=== PATIENT | male | born 1995 | race Caucasian/White ===

== ENCOUNTER 2017-02-18 23:45 | Inpatient (IN) | payer OTHER ==
[~2017-02-18] VITALS: Ht 177.8 cm; Wt 79.1 kg
[2017-02-19 00:35] LABS: MEAN CORPUSCULAR HEMOGLOBIN 32.9 pg (27.0-33.0); MEAN CORPUSCULAR HGB CONC 33.9 g/dl (32.0-36.5); MEAN CORPUSCULAR VOLUME 97.2 fl (80.0-96.0); RED CELL DISTRIBUTION WIDTH 12.2 % (11.5-14.5); WHITE BLOOD COUNT 9.2 K/mm3 (4.0-10.0)
[2017-02-19 01:09] LABS: ALBUMIN/GLOBULIN RATIO 1.18 (1.00-1.93); ALKALINE PHOSPHATASE 94 U/L (45-117); ALT/SGPT 22 U/L (12-78); ANION GAP 6 MEQ/L (8-16); AST/SGOT 13 U/L (15-37); BILIRUBIN,DIRECT 0.1 MG/DL (0.0-0.2); BILIRUBIN,TOTAL 0.5 MG/DL (0.2-1.0); BLOOD UREA NITROGEN 14 MG/DL (7-18); CALCIUM LEVEL 9.2 MG/DL (8.5-10.1); CARBON DIOXIDE LEVEL 29 MEQ/L (21-32); CHLORIDE LEVEL 107 MEQ/L (98-107); CREATININE FOR GFR 1.07 MG/DL (0.70-1.30); GLUCOSE, FASTING 93 MG/DL (70-105); METHADONE URINE NEGATIVE (NEGATIVE); POTASSIUM SERUM 3.9 MEQ/L (3.5-5.1); SODIUM LEVEL 142 MEQ/L (136-145); TOTAL PROTEIN 7.4 GM/DL (6.4-8.2)
[2017-02-19] MEDS ORDERED: MAALOX 30 ML SUSP *UDC PO PRN (02:15)
[2017-02-19] MEDS ORDERED: MOM 30ML SUSPENSION UDC PO PRN (02:15)
[2017-02-19] MEDS ORDERED: ACETAMINOPHEN TAB 650MG DOSE (2X325MG) PO PRN (02:15)
[2017-02-19 02:35] VITALS: BP 118/73
[2017-02-19] MEDS: NICOTINE 21MG/24HR 1 EA TRANSDERMAL TD SCH (09:00)
--- NOTE | 2017-02-19 10:56 | HPEPDOC ---
Medical History and Physical Date of Admission Feb 19, 2017 at 02:09 History and Physical PCP: [facility] ATTENDING: Dr. Alejandro Nieto HPI: 21yoM admitted to [facility] for unspecified depressive disorder, being medically examined today. No acute medical complaints today. Denies any fevers, chills, weakness, fatigue, MACIAS, CP, SOB, cough, palpitations, abdominal pain, N/V /D or changes in bowel or bladder habits. PMHx: Depression PSHX: Denies SOCHX: Resides in: [place], from [place] Marital Status: Single Kids: None Employment: Active duty Tobacco use: One pack per day ETOH: States he quit 6 weeks ago however prior to that he drank "alot" 2 years. Illicit Drugs: Denies IV Drug Use: Denies Tattoos done unprofessionally: Denies FAMHX: Mother: Alive, well Father: Alive, well Siblings: One brother Alive, well Children: None Unexpected deaths due to medical reasons: None. ROS: As noted in HPI, otherwise 11pt ROS of systems reviewed and unremarkable. PE: GEN: 21 yo M, appears stated age. Well-nourished, well developed. No acute distress. Alert and oriented x 3. Pleasant, interactive. HEENT: Normocephalic, atraumatic. Pupils are equal, round, and reactive to light. Extraocular movements are intact. No nystagmus appreciated. Sclera are nonicteric. Conjunctiva without injection. Nose midline. Nasal turbinates without bogginess. EACs both patent BL. TMs both visualized and agudelo with good cone of light, no bulging or erythema. No facial asymmetry. Moist mucous membranes. Dentition fair. Pharynx pink and moist, no cobblestoning. Neck supple , trachea midline. No lymphadenopathy or thyromegaly appreciated. CHEST: Regular rate and rhythm, +S1, +S2 LUNGS: Clear to auscultation bilaterally. No wheezes, rales, or rhonchi. Breathing appears symmetric and easy. Patient is speaking in full sentences. No accessory muscle use. ABD: Round, soft, non-tender, non-distended. +Bowel sounds throughout. No rebound or guarding. No costovertebral angle tenderness. EXT: Pulses 2+ bilaterally dorsalis pedis and radial. No lower extremity edema appreciated. SKIN: [place], dry, warm. Capillary refill <2sec. No rashes. NEURO: Alert and oriented x 3. Cranial nerves III-XII are intact. No focal deficits appreciated. EKG: pending. A&P: 21yoM admitted to [facility] for unspecified depressive disorder 1. Psych. Plan per Psychiatry. Obtain baseline EKG to assure the safety of psychiatric medications as they can prolong the QT interval. 2. Nicotine dependence. Patch available. 3. Follow up with PCP on discharge. 4. Staff member Eriberto present throughout exam. Vital Signs Vital Signs Date Time Temp Pulse Resp B/P (MAP) Pulse Ox O2 Delivery O2 Flow Rate FiO2 02/19/17 02:35 97.7 72 18 118/73 (88) Room Air 02/19/17 02:21 97 Laboratory Data Labs 24H Laboratory Tests 2 02/19/17 00:26: Anion Gap 6L, Calcium Level 9.2, Aspartate Amino Transf (AST/SGOT) 13L, Alanine Aminotransferase (ALT/SGPT) 22, Alkaline Phosphatase 94, Total Bilirubin 0.5, Direct Bilirubin 0.1, Total Protein 7.4, Albumin 4.0, Albumin/Globulin Ratio 1.18, Thyroid Stimulating Hormone (TSH) 2.670, Salicylates Level < 1.7L, Urine Amphetamines Screen NEGATIVE, Urine Benzodiazepines Screen NEGATIVE, Urine Opiates Screen NEGATIVE, Urine Methadone Screen NEGATIVE, Acetaminophen Level < 2.0L, Urine Barbiturates Screen NEGATIVE, Urine Phencyclidine Screen NEGATIVE, Urine Cocaine Metabolite Screen NEGATIVE, Urine Cannabinoids Screen NEGATIVE, Ethyl Alcohol Level < 0.003 CBC/BMP Laboratory Tests 02/19/17 00:26 Red Blood Count 4.21 L, Mean Corpuscular Volume 97.2 H, Mean Corpuscular Hemoglobin 32.9, Mean Corpuscular Hemoglobin Concent 33.9, Red Cell Distribution Width 12.2 Home Medications No Active Prescriptions or Reported Meds Allergies Coded Allergies: No Known Allergies (Unverified , 02/18/17) Rosalinda Samano Feb 19, 2017 10:56
[2017-02-19] MEDS: VENLAFAXINE **XR** 37.5 MG CAPSULE PO SCH (12:43)
[2017-02-19 18:00] VITALS: BP 132/81
[2017-02-19] MEDS: PRAZOSIN 1 MG CAP PO SCH (21:05)
--- NOTE | 2017-02-20 00:27 | ECGEPIP ---
Stationary ECG Study [facility] Test Date: 2017-02-19 Pat Name: NELLIE HAIRSTON Department: Room: [place] [address] Gender: M Catering Barista: : 1995 Requested By: Rosalinda Samano Order Number: [id number] Reading MD: Alejandro Nieto Measurements Intervals Kathleen Rate: 61 P: 71 NE: 181 QRS: 55 QRSD: 91 T: 2 QT: 424 QTc: 429 Interpretive Statements SINUS RHYTHM NONSPECIFIC T-WAVE ABNORMALITY Comparison tracing not on file Electronically Signed On 02-20-2017 0:27:17 EDT by Alejandro Nieto
[2017-02-20 06:26] VITALS: BP 94/58
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
[2017-02-20] MEDS: VENLAFAXINE **XR** 37.5 MG CAPSULE PO SCH (08:05)
[2017-02-20] MEDS: NICOTINE 21MG/24HR 1 EA TRANSDERMAL TD SCH (08:06)
[2017-02-20] MEDS ORDERED: VENLAFAXINE **XR** 37.5 MG CAPSULE PO SCH (09:00)
[2017-02-20 18:00] VITALS: BP 127/59
[2017-02-20] MEDS: PRAZOSIN 1 MG CAP PO SCH (20:57)
[2017-02-21 06:39] VITALS: BP 101/57
[2017-02-21] MEDS: VENLAFAXINE **XR** 75MG CAPSULE PO SCH (08:04)
[2017-02-21] MEDS: NICOTINE 21MG/24HR 1 EA TRANSDERMAL TD SCH (08:04)
--- NOTE | 2017-02-21 12:34 | IPN ---
DATE: 02/20/2017 VITAL SIGNS: Temperature 98.2, pulse 56, respirations 16, blood pressure 94/58. CURRENT MEDICATIONS: - Effexor XR 37.5 mg every morning - prazosin 1 mg nightly HISTORY OF THE PRESENT ILLNESS: The patient states he slept well last night. He did not eat breakfast this morning, he never does. He did take the Effexor this morning without any gastrointestinal side effects. His mood is better. He is not as depressed. Suicidal ideation less prominent. The patient's parents did visit from [place]. They are here for the weekend. He did sleep well last night. He tolerated the Minipress well. He had no nightmares, no orthostatic complaints. He is going to program. MENTAL STATUS EXAMINATION: The patient is alert, oriented and cooperative. The patient is still anxious. He is depressed, moderately so. Not voicing any suicidal ideation. Obsessions and rituals are mild. No signs of psychosis. Not hearing voices. No paranoia or thought disorder. Grooming and hygiene remain good. DIAGNOSES: Major depression, recurrent, moderate severity. Post-traumatic stress disorder (PTSD). Obsessive-compulsive disorder (OCD). Rule out generalized anxiety disorder (NATO). PLAN: Increase Effexor XR 37.5 mg every morning. No change in Minipress. Involve in hospital milieu. EARLE
[2017-02-21 18:20] VITALS: BP 125/58
[2017-02-21] MEDS: PRAZOSIN 1 MG CAP PO SCH (20:59)
[2017-02-22 06:13] VITALS: BP 145/60
[2017-02-22] MEDS: VENLAFAXINE **XR** 75MG CAPSULE PO SCH (08:19)
[2017-02-22] MEDS: NICOTINE 21MG/24HR 1 EA TRANSDERMAL TD SCH (08:19)
[2017-02-22] MEDS: hydrOXYzine 50 MG TAB PO PRN (15:30)
[2017-02-22 18:29] VITALS: BP 123/60
[2017-02-22] MEDS: PRAZOSIN 1 MG CAP PO SCH (20:52)
[2017-02-22] MEDS: traZODone 50 MG TAB PO PRN (21:57)
[2017-02-23 06:53] VITALS: BP 116/68
[2017-02-23] MEDS: NICOTINE 21MG/24HR 1 EA TRANSDERMAL TD SCH (08:30)
[2017-02-23] MEDS: VENLAFAXINE **XR** 37.5 MG CAPSULE PO SCH (08:30)
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
[2017-02-23] MEDS: hydrOXYzine 50 MG TAB PO PRN (14:36)
[2017-02-23 18:00] VITALS: BP 131/66
--- NOTE | 2017-02-23 19:25 | IPN ---
DATE: 02/23/2017 VITAL SIGNS: Temperature 97.3, pulse 78, respirations 16, blood pressure 116/ 64. CURRENT MEDICATION: - Effexor XR 125.5 mg every morning - Atarax 50 mg every 6 hours as needed - prazosin 1 mg at bedtime (hs) - trazodone 50 mg at bedtime (hs) as needed HISTORY OF PRESENT ILLNESS: The patient reports his mood to be somewhat improved. He is tolerating the Effexor well. He did see Dr. Montes over the weekend to increase his dose slightly. He has had no adverse side-effects on it so far. His family did visit from [place]. A family meeting was attended on Thursday afternoon. They were quite supportive. He is sleeping better with the Minipress at night. He denies any nightmares. His depression is in the moderate range 5/10. He does feel more hopeful about the future. Appetite is good. MENTAL STATUS EXAMINATION: The patient alert, oriented and cooperative. The patient mildly anxious with some social phobic symptoms. The patient still moderately depressed. He is not suicidal. Obsessive compulsive disorder (OCD) symptoms are mild. He is nonpsychotic. Grooming and hygiene are good. DIAGNOSIS: 1. Major depression, recurrent, moderate in severity. 2. Posttraumatic stress disorder (PTSD). 3. Obsessive compulsive disorder (OCD), rule out generalized anxiety disorder. PLAN: No Change in the psychotropics. Encourage Milieu therapy. MTDD
--- NOTE | 2017-02-23 19:25 | MHIPN ---
DATE: 02/22/2017 CURRENT MEDICATIONS: Venlafaxine 112.5 mg Prazosin 1 mg by mouth at bedtime SUBJECTIVE: Patient reports that he feels less depressed and he was agreeable to increase the 77.5 mg of Venlafaxine that he had agreed previously with Dr. Keys. He rates his anxiety level on a 4 to 5 and he says that approximately he gets like 4 anxiety-panic attacks per day and he notices it because his heart rate increases, he gets clammy hands, gets a sensation of doom, chest tightness, and shortness of breath. OBJECTIVE: Patient is apparently calmed, cooperative with poor eye contact at times and good at times. His speech is goal directed, thought process is intact, thought content is about anxiety and anxiety attacks. He denies homicidal or suicidal ideation, denies auditory of visual hallucinations and denies delusions. His attention span and concentration are fair. His memory is intact. His judgment and impulse control as well as insight are fair. His mood and affect are sad and anxious. DIAGNOSES: 1. Major depression recurrent, moderate severity. 2. Post-traumatic stress disorder. 3. Obsessive compulsive disorder. 4. Rule out generalized anxiety disorder. PLAN: As per Dr. Keys, patient will be increased 37.5 mg of Effexor per day, and this provider has started him on Atarax 50 mg by mouth every 6 hours as needed for anxiety. Will encourage him to keep attending group. Will followup.
[2017-02-23] MEDS: PRAZOSIN 1 MG CAP PO SCH (20:57)
[2017-02-24 06:42] VITALS: BP 118/64
[2017-02-24] MEDS: NICOTINE 21MG/24HR 1 EA TRANSDERMAL TD SCH (07:59)
[2017-02-24] MEDS: VENLAFAXINE **XR** 37.5 MG CAPSULE PO SCH (08:00)
[2017-02-24] MEDS: hydrOXYzine 50 MG TAB PO PRN ×2 (09:05→20:10)
[2017-02-24 18:00] VITALS: BP 121/68
[2017-02-24] MEDS: PRAZOSIN 1 MG CAP PO SCH (20:51)
[2017-02-24] MEDS: traZODone 50 MG TAB PO PRN (22:40)
--- NOTE | 2017-02-24 22:44 | IPN ---
DATE: 02/24/2017 VITAL SIGNS: Temperature 97.8, pulse 66, respirations 16, blood pressure 118/64. CURRENT MEDICATIONS: - Effexor XR 112.5 mg every morning - prazosin 1 mg nightly - trazodone 50 mg nightly as needed - Atarax 50 mg every 6 hours as needed HISTORY OF THE PRESENT ILLNESS: The patient reports his mood is better, his depression is in the mild range now, anxiety fluctuates mild to moderate range. He does now report likely panic attacks. He gets clammy and sweaty all over. He gets shortness of breath and tightness of chest. His appetite is fine. He is sleeping well at night. No side effects on the Effexor. He is willing to increase the dosage. He is starting to attend groups. He did not eat breakfast but does not have any nausea from the medication. Caffeine consumption is minimal. He will drink a Monster energy drink, however, frequently, which can aggravate his anxiety disorder. He was urged to avoid those products. MENTAL STATUS EXAMINATION: The patient is alert, oriented and cooperative. Eye contact seems improved, anxiety less prominent. Mood appears in the mild depressive range. He is not voicing any suicidal thoughts. Obsessive-compulsive disorder (OCD) symptoms are minimal. No signs of psychosis. Grooming and hygiene are good. DIAGNOSIS: Major depression, recurrent. Post-traumatic stress disorder (PTSD). Obsessive-compulsive disorder (OCD). PLAN: Increase the Effexor to 150 mg every morning, encourage milieu therapy.
[2017-02-25 07:02] VITALS: BP 140/67
[2017-02-25] MEDS: VENLAFAXINE **XR** 75MG CAPSULE PO SCH (08:31)
[2017-02-25] MEDS: NICOTINE 21MG/24HR 1 EA TRANSDERMAL TD SCH (08:32)
[2017-02-25] MEDS: hydrOXYzine 50 MG TAB PO PRN (14:18)
[2017-02-25 18:00] VITALS: BP 117/54
[2017-02-25] MEDS: traZODone 50 MG TAB PO PRN (21:51)
[2017-02-25] MEDS: PRAZOSIN 1 MG CAP PO SCH (21:52)
[2017-02-26 06:27] VITALS: BP 131/61
--- NOTE | 2017-02-26 07:50 | IPN ---
DATE: 02/25/2017 VITAL SIGNS: Temperature 97.4, pulse 55, respirations 16, blood pressure 140/ 67. CURRENT MEDICATIONS: - Effexor XR 150 mg in the morning - trazodone 50 mg at night as needed - prazosin 1 mg at night HISTORY OF PRESENT ILLNESS: The patient states that his mood is better, except yesterday evening was hard. He felt sad and down. He is not aware of any trigger. He did not sleep as well last night. He had a sleep latency of about 1 hour. He had some bad dreams but no actual nightmares. He is going to increase the Minipres at night to help with sleep and bad dreams. His appetite is fine. He is more active and social on the unit. MENTAL STATUS EXAMINATION: The patient is alert, oriented and cooperative. The patient voiced mild anxiety. Mild to moderate depression. He is not suicidal. Obsessive compulsive disorder (OCD) symptoms are mild. He is not psychotic. Grooming and hygiene are good. No panic attack symptoms noted today. DIAGNOSES: 1. Major depression, recurrent. 2. Panic/anxiety disorder. 3. Posttraumatic stress disorder (PTSD). 4. Obsessive compulsive disorder (OCD). PLAN: Continue with Effexor. Increase Minipres 2 mg at night as tolerated. The patient warned about orthostatic issues. MTDD
[2017-02-26] MEDS: VENLAFAXINE **XR** 75MG CAPSULE PO SCH (08:43)
[2017-02-26] MEDS: NICOTINE 21MG/24HR 1 EA TRANSDERMAL TD SCH (08:44)
[2017-02-26 18:00] VITALS: BP 150/63
[2017-02-26] MEDS: hydrOXYzine 50 MG TAB PO PRN (19:08)
[2017-02-26] MEDS: traZODone 50 MG TAB PO PRN (23:02)
[2017-02-26] MEDS: PRAZOSIN 1 MG CAP PO SCH (23:03)
[2017-02-27 06:46] VITALS: BP 151/58
[2017-02-27] MEDS: NICOTINE 21MG/24HR 1 EA TRANSDERMAL TD SCH (08:01)
[2017-02-27] MEDS: VENLAFAXINE **XR** 75MG CAPSULE PO SCH (08:01)
--- NOTE | 2017-02-27 08:12 | MHIPN ---
DATE: 02/26/2017 VITAL SIGNS: Temperature 98.4, pulse 50, respirations 20, blood pressure 131/61. CURRENT MEDICATIONS: - Effexor XR 150 mg every morning - Prazosin 2 mg at bedtime - trazodone 50 mg at bedtime as needed HISTORY OF PRESENT ILLNESS: The patient again reports that he was benton yesterday evening. He was preoccupied by sad thoughts and interpersonal losses he has had over the years. He had the same phenomenon happen the night before. His appetite is good. He slept a bit better last night with the increased dose of Minipress. He had no nightmares, but did have sleep latency lasting for about one hour. He is agreeable to increasing the dose of Effexor. It has been quite well tolerated. MENTAL STATUS EXAMINATION: The patient is alert, oriented and cooperative. Anxiety is mild. Depression, however, persists, especially in the evening. He is not suicidal. Obsessive compulsive disorder (OCD) symptoms are mild. No signs of psychosis. No signs of dangerousness. He is not preoccupied by suicidal ideations. Grooming and hygiene are good. DIAGNOSES: 1. Major depression, recurrent. 2. Panic anxiety disorder. 3. Posttraumatic stress disorder (PTSD). 4. Obsessive compulsive disorder (OCD). PLAN: Increase Effexor XR to 225 mg by mouth every morning. No change to other psychotropics.
[2017-02-27] MEDS ORDERED: LORazepam 1 MG TAB PO PRN (08:30)
[2017-02-27 18:00] VITALS: BP 150/73
[2017-02-27] MEDS: PRAZOSIN 1 MG CAP PO SCH (21:06)
[2017-02-27] MEDS: traZODone 50 MG TAB PO PRN (23:24)
[2017-02-28 06:50] VITALS: BP 132/78
[2017-02-28] MEDS: NICOTINE 21MG/24HR 1 EA TRANSDERMAL TD SCH (08:14)
[2017-02-28] MEDS: VENLAFAXINE **XR** 75MG CAPSULE PO SCH (08:15)
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
[2017-02-28] MEDS: hydrOXYzine 50 MG TAB PO PRN (15:07)
[2017-02-28 18:00] VITALS: BP 137/77
[2017-03-01] MEDS: traZODone 100 MG TAB PO PRN ×2 (00:15→22:11)
[2017-03-01] MEDS: PRAZOSIN 1 MG CAP PO SCH ×2 (00:17→20:42)
[2017-03-01 06:57] VITALS: BP 153/76
[2017-03-01] MEDS: VENLAFAXINE **XR** 75MG CAPSULE PO SCH (08:47)
[2017-03-01] MEDS: NICOTINE 21MG/24HR 1 EA TRANSDERMAL TD SCH (08:47)
[2017-03-01 18:00] VITALS: BP 136/75
[2017-03-01] MEDS: hydrOXYzine 50 MG TAB PO PRN (20:42)
[2017-03-02 07:19] VITALS: BP 98/56
[2017-03-02] MEDS: VENLAFAXINE **XR** 75MG CAPSULE PO SCH (08:38)
[2017-03-02] MEDS: NICOTINE 21MG/24HR 1 EA TRANSDERMAL TD SCH (08:39)
--- NOTE | 2017-03-02 15:20 | MHIPN ---
DATE: 03/02/2017 VITAL SIGNS: Temperature 98.3, pulse 63, respirations 16, blood pressure 98/56. CURRENT MEDICATIONS: - Effexor XR 225 mg in the morning - prazosin 2 mg at night - trazodone 100 mg at night as needed - Ativan 1 mg every 4 hours as needed - Atarax 50 mg every 6 hours as needed HISTORY OF PRESENT ILLNESS: The patient reports that his mood is much improved over the weekend. His irritability has resolved. Anxiety is much improved. His mother has visited from out of town. She is interviewed. She confirms his progress. She is happy that he is socializing more with his peers and is more verbal with her. His appetite is good. He is sleeping well at night. No flashbacks or nightmares. He had some anxiety yesterday but not major panic attacks. He feels hopeful with discharge plans and following up at [facility]. MENTAL STATUS EXAMINATION: Mood and affect much improved. Depression appears to have resolved. Affect appears quite good. Anxiety is minimal. He is not homicidal or suicidal. Obsessive compulsive disorder (OCD) symptoms are minimal. Grooming and hygiene are good. No signs of impulsivity or dangerousness. DIAGNOSES: 1. Major depression, recurrent. 2. Panic and anxiety disorder. 3. Posttraumatic stress disorder (PTSD). 4. Obsessive compulsive disorder (OCD). PLAN: Continue present management. Staff to work on setting up chain of command meeting for probable discharge tomorrow.
[2017-03-02 18:40] VITALS: BP 127/58
[2017-03-02 23:04] VITALS: BP 125/65
[2017-03-02] MEDS: PRAZOSIN 1 MG CAP PO SCH (23:04)
[2017-03-02] MEDS: traZODone 100 MG TAB PO PRN (23:04)
[2017-03-03 07:08] VITALS: BP 128/60
[2017-03-03] MEDS: VENLAFAXINE **XR** 75MG CAPSULE PO SCH (08:05)
[2017-03-03] MEDS: NICOTINE 21MG/24HR 1 EA TRANSDERMAL TD SCH (08:06)
[2017-03-03] MEDS ORDERED: HYDRO50TAB PO (08:47)
[2017-03-03] MEDS ORDERED: TRAZ10TA PO (08:47)
[2017-03-03] MEDS ORDERED: VENL75CA2 PO (08:47)
[2017-03-03] MEDS ORDERED: PRAZ2CAP PO (08:47)
[2017-03-03] MEDS: hydrOXYzine 50 MG TAB PO PRN (10:04)
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
== END 2017-03-03 11:52 | disposition home or self-care (01) | DRG 885 ==
LOC: M ED 23:45 → M ED INP 02-19 02:09 → M PSY 02-19 02:30
PROVIDERS: ADMIT Psychiatry & Neurology Psychiatry; ATTEND Psychiatry & Neurology Psychiatry
DX: F33.1 Major depressive disorder, recurrent, moderate (principal); F43.10 Post-traumatic stress disorder, unspecified; F42.8 Other obsessive-compulsive disorder; F41.1 Generalized anxiety disorder; F17.210 Nicotine dependence, cigarettes, uncomplicated; Z91.5 Personal history of self-harm; Z62.810 Personal history of physical and sexual abuse in childhood